=== PATIENT | female | born 1990 | race Caucasian/White ===

== ENCOUNTER → 2020-02-28 16:12 | Outpatient (BNVA) | payer OTHER, SELFPAY | PROVIDERS: PCP Internal Medicine; Referring Provider Internal Medicine; Visit Provider Student in an Organized Health Care Education/Training Program | DX: O99.891 Other specified diseases and conditions complicating pregnancy (principal); M79.7 Fibromyalgia; M41.9 Scoliosis, unspecified; O99.350 Diseases of the nervous system complicating pregnancy, unspecified trimester; G56.01 Carpal tunnel syndrome, right upper limb; Z3A.00 Weeks of gestation of pregnancy not specified; Z79.899 Other long term (current) drug therapy | CPT/HCPCS: 99212 ==

== ENCOUNTER 2020-09-24 11:06 | Outpatient (REF) | payer OTHER, SELFPAY ==
--- NOTE | ~2020-09-24 | XR_ITS ---
EXAMINATION: XR THORACOLUMBAR SPINE CLINICAL INFORMATION: Scoliosis. COMPARISON: No direct priors. Correlation is made with a chest radiograph from 09/06/2016. TECHNIQUE: AP, lateral, and swimmer's views of the thoracic spine. Suboptimal patient positioning on the swimmer's view. FINDINGS: There is a mild right convex spinal curvature centered at T12. This appears relatively similar compared to chest radiograph from 09/06/2016. Spinal alignment on the lateral view is unremarkable. No subluxation is visualized. No intrinsic vertebral segmentation anomalies are identified. The vertebral body heights and intervertebral disc spaces are relatively well maintained. There are no acute osseous findings. XR/XR thoracic spine 2V IMPRESSION: Mild right convex curvature of the spine centered at T12 that appears relatively unchanged. Otherwise, unremarkable radiographs of the thoracic spine.
== END 2020-09-24 11:07 | disposition home or self-care (01) ==
LOC: HO.XRAY 11:06
PROVIDERS: PCP Internal Medicine; Visit Provider Student in an Organized Health Care Education/Training Program
DX: M79.7 Fibromyalgia (principal); M41.9 Scoliosis, unspecified
CPT/HCPCS: 72070; 99212